=== PATIENT | male | born 1995 | race Caucasian/White ===

== ENCOUNTER 2018-11-22 11:28 | Emergency (ER) | payer SELFPAY ==
[~2018-11-22] VITALS: Ht 170.2 cm; Wt 107.5 kg
[2018-11-22 11:30] VITALS: BP 137/80
--- NOTE | 2018-11-22 11:46 | NUR ---
C/O SORE THROAT 02/23, SHARP & WORSE WHEN SWALLOWING/EATING X1 DAY. PT REPORTS CONGESTION & NAUSEA. DENIES VOMITING, FEVER, COUGH, CP, SOB. PT STATES HER THROAT FEELS "TIGHT". SPO2 98% RA, NO LABORED BREATHING NOTED, NO ACCESORY MUSCLE USE NOTED, LUNG SOUNDS CLEAR AND EQUAL BILAT, EVEN CHEST RISE AND FALL. BACK OF THROAT IS REDDENED WITH SCATTERED WHITE PATCHES, PT VOICE IS HOARSE. SIDE RAIL UP X1, BED IN LOW POSITION. AT BEDSIDE.
--- NOTE | 2018-11-22 12:05 | NUR ---
DR OSORIO AT BEDSIDE
[2018-11-22] MEDS ORDERED: LIDOCAINE 1% 500 MG/50 ML VIAL INJ SCH (12:10)
[2018-11-22] MEDS ORDERED: methylPREDNISolone SS 125 MG/2 ML VIAL IM ONE (12:10)
[2018-11-22] MEDS ORDERED: cefTRIAXone 1,000 MG in LIDOCAINE MPF 1% - 5 mL VIAL 2.1 ML IM ONE (12:10)
[2018-11-22 12:52] VITALS: BP 137/80
--- NOTE | 2018-11-22 12:53 | NUR ---
Patient discharged with v/s stable. Written and verbal after care instructions given and explained. Patient alert, oriented and verbalized understanding of instructions. Ambulatory with steady gait. All questions addressed prior to discharge. ID band removed. Patient advised to follow up with PMD. Rx of AUGMENTIN, MOTRIN, & PREDNISONE given. Patient educated on indication of medication including possible reaction and side effects. Opportunity to ask questions provided and answered.
== END 2018-11-22 12:53 | disposition home or self-care (01) ==
LOC: MED 11:28
DX: J03.90 Acute tonsillitis, unspecified (principal)
CPT/HCPCS: 96372; 99283; J0696; J2001; J2930